=== PATIENT | male | born 1990 | race Caucasian/White ===

== ENCOUNTER 2020-08-17 10:51 | Emergency (ER) | payer OTHER, SELFPAY ==
[2020-08-17 11:20] VITALS: BP 130/87; PULSE 72; RESP 16; TEMP 37; O2SAT 97; BMI 27.4
--- NOTE | 2020-08-17 11:34 | HMH.EDUTC ---
[facility] – [place] Disposition Clinical Impression: URI (upper respiratory infection) Qualifiers: URI type: unspecified URI Qualified Code(s): J06.9 - Acute upper respiratory infection, unspecified Disposition: Home, Self-Care Condition on Discharge: Good Instructions: Sore Throat, DI for Sinusitis Additional Instructions: *Monitor Temp, Over the counter Motrin or Tylenol as directed/as needed Tylenol every 4 hours and Motrin every 6 hours (as long as your family doctor has told you that you can take it) for fever or pain. and straight to ER if unable to lower temp less than 101.0 after medication given *Warm salt water gargles may help to soothe the throat *Throat Lozenges *Warm fluids like tea with honey may help to soothe the throat *Sleep elevated *Humidifier/Vaporizer *Flonase 2 sprays in each nostril daily but be aware that it may take 2-3 days before you notice improvement Follow up IMMEDIATELY for new or worsening symptoms or no Noticeable improvement over the next 48-72 hours. 911 for difficulty breathing or swallowing Referrals: Britton High MD [Primary Care Provider] - As needed Forms: Work/School Release Time of Disposition: 11:47 Medical Decision Making - Sergio Inquiry Pt receiving controlled substance: No Sergio was queried for this patient: No Vital Signs: 08/17/20 11:20 Temperature 98.6 F Temperature Source Oral Pulse Rate [Right Brachial] 72 Respiratory Rate 16 Blood Pressure [Right Arm] 130/87 Blood Pressure Mean [Right Arm] 101 Blood Pressure Source [Right Arm] Automatic Cuff Blood Pressure Position [Right Arm] Sitting 02 Sat by Pulse Oximetry 97 Oxygen Delivery Method Room Air Orders (Tests/Meds): ED MEDICATIONS Discontinued Medications Generic Name Dose Route Start Last Admin Trade Name Freq PRN Reason Stop Dose Admin Ceftriaxone Sodium 1 gm 08/17/20 11:35 08/17/20 11:55 Ceftriaxone 1gm Vial IM 08/17/20 11:36 1 gm ONCE ONE Administration Protocol Lidocaine HCl 0 ml 08/17/20 11:35 08/17/20 11:55 Lidocaine 1% 5ml Pf Vial IM 08/17/20 11:36 2.1 ml ONCE ONE Administration Methylprednisolone Sodium Succinate 125 mg 08/17/20 11:35 08/17/20 11:55 Methylprednisolone Sod Succ 125mg Vial IM 08/17/20 11:36 125 mg ONCE ONE Administration [facility] [place] HPI - General Stated complaint: congestion Time Seen by Provider: 08/17/20 11:34 Mode of Arrival: Ambulatory Source of Information: Patient Limitations: No Limitations Description of Symptoms (Recalled from Triage Doc. by RN): PATIENT C/O SINUS PRESSURE AND COUGH X 1 WEEK HEENT Symptoms (Recalled from RN notes): Yes Resp Symptoms (Recalled from RN notes): Yes Skin Symptoms (Recalled from RN notes): No MS Symptoms (Recalled from RN notes): No Functional Status (Recalled from RN notes): WNL - History of Present Illness Provider Complaint: Patient states that he has been having sinus congestion, drainage and some irritation in the back of his throat States that he has had this several times before and come in and got a shot that helped States that today he was still having symtpoms so he come in - Related Data Allergies Allergy/AdvReac Type Severity Reaction Status Date / Time Sulfa (Sulfonamide Allergy Intermediate I-RASH Verified 09/04/18 18:29 Antibiotics) [SULFA (SULFONAMIDE ANTIBIOTICS)] - Worker's Comp Is this a Worker's Comp case?: No [facility] History - Hepatitis A Screen Drug use history?: No High risk sexual behaviors?: No History of sexually transmitted infection?: No Currently employed?: No Childcare worker?: No Do you have indoor plumbing?: Yes Do you have electricity?: Yes Attestation statement:: This patient has been screened for Hepatitis A risk factors. I have reviewed the patient's past medical history: Yes Medical History: Denies:: Cancer, Diabetes Mellitus Type 1, Diabetes Mellitus Type 2, MRSA Amputation: No Fractures: No - Social History Smoking S
[2020-08-17 12:09] VITALS: BP 130/87; PULSE 72; RESP 16; TEMP 37; O2SAT 97
== END 2020-08-17 12:11 | disposition home or self-care (01) ==
PROVIDERS: Emergency Provider Nurse Practitioner; PCP Internal Medicine Adolescent Medicine
DX: J06.9 Acute upper respiratory infection, unspecified (principal); Z88.2 Allergy status to sulfonamides
CPT/HCPCS: 96372; 99201

== ENCOUNTER 2020-09-16 15:59 | Emergency (ER) | payer OTHER, SELFPAY ==
[2020-09-16 16:05] VITALS: BP 154/99; PULSE 121; RESP 16; TEMP 37.9; O2SAT 99; BMI 25.8
--- NOTE | 2020-09-16 16:32 | HMH.EDUTC ---
[facility] [place]ression: Bronchitis, Viral syndrome Disposition: Home, Self-Care Condition on Discharge: Good Instructions: DI for Acute Bronchitis, Preventing the Spread of Coronavirus Discharge Instructions Additional Instructions: Drink plenty of fluids. Take tylenol for pain or fever. Return if you begin to have difficulty breathing. Follow up with your regular doctor. GO TO THE ER FOR ANY WORSENING SYMPTOMS Prescriptions: Brompheniramine/Pseudoephed/Dm [Bromfed Dm Cough Syrup] 5 ml PO Q6HP PRN #240 syrup PRN Reason: Cough Transmission Status: Re[facility] by [facility] Azithromycin [Z-Hao 250mg Tab*] 250 mg PO UD DOSE PK #6 tab Transmission Status: Received by [facility] Referrals: Britton High MD [Primary Care Provider] - Time of Disposition: 16:34 Medical Decision Making - Medical Records Medical records reviewed: No: I reviewed the patient's medical records. - Sergio Inquiry Pt receiving controlled substance: No Vital Signs: 09/16/20 16:05 09/16/20 16:37 Temperature 100.2 F H 100.2 F H Temperature Source Oral Pulse Rate 121 H Pulse Rate [Left Brachial] 121 H Respiratory Rate 16 16 Blood Pressure 154/99 H Blood Pressure [Left Arm] 154/99 H Blood Pressure Mean [Left Arm] 117 Blood Pressure Source [Left Arm] Automatic Cuff Blood Pressure Position [Left Arm] Sitting 02 Sat by Pulse Oximetry 99 Oxygen Delivery Method Room Air - Lab Data Lab Results 09/16/20 16:26: Influenza Type A Ag Negative, Influenza Type B Ag Negative [facility] [place] - General Stated complaint: congestion cough Time Seen by Provider: 09/16/20 16:32 Mode of Arrival: Ambulatory Source of Information: Patient Limitations: No Limitations Description of Symptoms (Recalled from Triage Doc. by RN): PATIENT C/O COUGH THAT STARTED YESTERDAY HEENT Symptoms (Recalled from RN notes): No Resp Symptoms (Recalled from RN notes): Yes Skin Symptoms (Recalled from RN notes): No MS Symptoms (Recalled from RN notes): No Functional Status (Recalled from RN notes): WNL - History of Present Illness Provider Complaint: He states that for the past 1 day he has developed a cough and chest congestion. He denies any possible covid exposure and he adamantly refuses a covid test today. - Related Data Previous Rx's Medication Instructions Recorded Azithromycin [Z-Hao 250mg Tab*] 250 mg PO UD DOSE PK #6 tab 09/16/20 Brompheniramine/Pseudoephed/Dm 5 ml PO Q6HP PRN #240 syrup 09/16/20 [Bromfed Dm Cough Syrup] Allergies Allergy/AdvReac Type Severity Reaction Status Date / Time Sulfa (Sulfonamide Allergy Intermediate I-RASH Verified 09/04/18 18:29 Antibiotics) [SULFA (SULFONAMIDE ANTIBIOTICS)] - Worker's Comp Is this a Worker's Comp case?: No H History - Hepatitis A Screen Drug use history?: No High risk sexual behaviors?: No History of sexually transmitted infection?: No Currently employed?: No Childcare worker?: No Do you have indoor plumbing?: Yes Do you have electricity?: Yes Attestation statement:: This patient has been screened for Hepatitis A risk factors. I have reviewed the patient's past medical history: Yes Medical History: Denies:: Cancer, Diabetes Mellitus Type 1, Diabetes Mellitus Type 2, MRSA Amputation: No Fractures: No - Social History Smoking Status: Never smoker Alcohol Intake: never Alcohol Intake Frequency:: holidays/special occasions only Occupational Status: other Housing: house ROS Obtained: Yes All systems reviewed & no additional complaints - Constitutional Constitutional: Reports system reviewed and no additional complaints, except as docu - Eyes Eyes: Reports system reviewed and no additional complaints, except as docu - ENT Ears, Nose, Mouth, and Throat: Reports system reviewed and no additional complaints, except as docu - Cardiovascular Cardiovascular: Reports system reviewed and no additional co
[2020-09-16 16:37] VITALS: BP 154/99; PULSE 121; RESP 16; TEMP 37.9; O2SAT 99
[2020-09-16 16:49] LABS: UTC Influenza A Antigen Negative (Negative); UTC Influenza B Antigen Negative (Negative)
== END 2020-09-16 16:40 | disposition home or self-care (01) ==
PROVIDERS: Emergency Provider Nurse Practitioner Family; PCP Internal Medicine Adolescent Medicine
DX: J20.9 Acute bronchitis, unspecified (principal); B34.9 Viral infection, unspecified
CPT/HCPCS: 87804; 99201

== ENCOUNTER 2020-09-21 13:47 | Emergency (ER) | payer OTHER, SELFPAY ==
--- NOTE | 2020-09-21 14:18 | HMH.EDUTC ---
[facility] [place] Disposition Clinical Impression: Cough, Viral syndrome Disposition: Home, Self-Care Condition on Discharge: Good Instructions: Cough Additional Instructions: Drink plenty of fluids. Take tylenol for pain or fever. Return if you begin to have difficulty breathing. Follow up with your regular doctor. GO TO THE ER FOR ANY WORSENING SYMPTOMS Prescriptions: Promethazine/Dextromethorphan [Promethazine-Dm Syrup] 5 ml PO Q6HP PRN #240 syrup PRN Reason: Cough Transmission Status: Received by [id number] Referrals: Britton High MD [Primary Care Provider] - Time of Disposition: 14:39 Medical Decision Making - Medical Records Medical records reviewed: No: I reviewed the patient's medical records. - Sergio Inquiry Pt receiving controlled substance: No Vital Signs: 09/21/20 14:22 09/21/20 14:42 Temperature 99.4 F 99.4 F Temperature Source Oral Pulse Rate 74 Pulse Rate [Left] 74 Respiratory Rate 19 19 Blood Pressure 128/84 Blood Pressure [Right Arm] 128/84 Blood Pressure Mean [Right Arm] 98 Blood Pressure Source [Right Arm] Automatic Cuff Blood Pressure Position [Right Arm] Sitting 02 Sat by Pulse Oximetry 98 Oxygen Delivery Method Room Air Medical Decision Narrative: He adamantly refused a covid test. [facility] [place] HPI - General Stated complaint: cough Time Seen by Provider: 09/21/20 14:18 - History of Present Illness Provider Complaint: He is back here with a complaint of continuing to have a cough. He refuses a covid test. He completed a z-pack. He has also been taking bromfed for his cough, but its not working very well. - Related Data Previous Rx's Medication Instructions Recorded Promethazine/Dextromethorphan 5 ml PO Q6HP PRN #240 syrup 09/21/20 [Promethazine-Dm Syrup] Allergies Allergy/AdvReac Type Severity Reaction Status Date / Time Sulfa (Sulfonamide Allergy Intermediate I-RASH Verified 09/21/20 14:40 Antibiotics) [SULFA (SULFONAMIDE ANTIBIOTICS)] [facility] History - Hepatitis A Screen Attestation statement:: This patient has been screened for Hepatitis A risk factors. I have reviewed the patient's past medical history: Yes Medical History: Denies:: Cancer, Diabetes Mellitus Type 1, Diabetes Mellitus Type 2, MRSA Amputation: No Fractures: No - Social History Smoking Status: Never smoker Alcohol Intake: never Alcohol Intake Frequency:: holidays/special occasions only Occupational Status: other Housing: house ROS Obtained: Yes All systems reviewed & no additional complaints - Constitutional Constitutional: Reports system reviewed and no additional complaints, except as docu - Eyes Eyes: Reports system reviewed and no additional complaints, except as docu - ENT Ears, Nose, Mouth, and Throat: Reports system reviewed and no additional complaints, except as docu - Cardiovascular Cardiovascular: Reports system reviewed and no additional complaints, except as docu - Respiratory Respiratory: Yes system reviewed and no additional complaints, except as docu - Gastrointestinal Gastrointestingal: Reports: system reviewed and no additional complaints, except as docu Physical Exam - General General appearance: alert, in no apparent distress - Head Head exam: atraumatic, normocephalic, normal inspection - Eye Eye exam: Present: normal appearance, PERRL, EOMI - ENT ENT exam: Present: normal exam, normal oropharynx, mucous membranes moist, TM's normal bilaterally, normal external ear exam - Neck Neck exam: Present: normal inspection, full ROM, trachea midline. Absent: meningismus, lymphadenopathy - Chest Chest inspection: Present: normal inspection, symmetric chest wall rise. Absent: tenderness - Respiratory Respiratory exam: Present: normal lung sounds bilaterally. Absent: respiratory distress - Cardiovascular Cardiovascular exam: Present: regular rate, normal rhythm. Absent: JVD - Abdomin
[2020-09-21 14:22] VITALS: BP 128/84; PULSE 74; RESP 19; TEMP 37.4; O2SAT 98; BMI 27.4
[2020-09-21 14:42] VITALS: BP 128/84; PULSE 74; RESP 19; TEMP 37.4; O2SAT 98
== END 2020-09-21 14:42 | disposition home or self-care (01) ==
PROVIDERS: Emergency Provider Nurse Practitioner Family; PCP Internal Medicine Adolescent Medicine
DX: B34.9 Viral infection, unspecified (principal)
CPT/HCPCS: 99201

== ENCOUNTER → 2020-09-24 16:01 | Outpatient (CLI) | payer OTHER, SELFPAY ==
--- NOTE | 2020-09-24 16:10 | XR_ITS ---
PROCEDURE: XR CHEST PORTABLE CLINICAL HISTORY: COVID OUPATIENT COMPARISON: No exams were available for comparison FINDINGS: The cardiomediastinal silhouette and pulmonary vascularity are within normal limits. The lungs are clear without infiltrates, suspicious nodules, or pleural effusions. There is a possible partially calcified granuloma left lower lobe. No acute bony abnormalities. IMPRESSION: No acute findings. Dictated by: Dr. Justyn Cortez MD 09/25/2020 09:40 Dr. Justyn Cortez MD in [place] 09/25/2020 09:40
[2020-09-24 16:23] LABS: Adenovirus,PCR Not Detected (NotDetected); Bordetella Pertussis Not Detected (NotDetected); Chlamydophila Pneumoniae, PCR Not Detected (NotDetected); Coronavirus 229E Not Detected (NotDetected); Coronavirus NL63 Not Detected (NotDetected); Coronavirus OC43 Not Detected (NotDetected); Coronovirus HKU1,PCR Not Detected (NotDetected); Human Metapneumovirus Not Detected (NotDetected); Influenza A, PCR Not Detected (NotDetected); Influenza AH1, 2009 Not Detected (NotDetected); Influenza AH1, PCR Not Detected (NotDetected); Influenza AH3,PCR Not Detected (NotDetected); Influenza B, PCR Not Detected (NotDetected); Mycoplasma Pneumoniae, PCR Not Detected (NotDetected); Parainfluenza 1, PCR Not Detected (NotDetected); Parainfluenza 2, PCR Not Detected (NotDetected); Parainfluenza 3, PCR Not Detected (NotDetected); Parainfluenza 4, PCR Not Detected (NotDetected); Respiratory Syncytial Virus Not Detected (NotDetected); Rhinovirus/Enterovirus Not Detected (NotDetected)
[2020-09-25 09:25] LABS: Coronavirus 19, PCR Detected (NotDetected)
== END ==
PROVIDERS: PCP Internal Medicine Adolescent Medicine; Visit Provider Internal Medicine Adolescent Medicine
DX: Z20.828 Contact with and (suspected) exposure to other viral communicable diseases (principal); U07.1 COVID-19
CPT/HCPCS: 71045; 87581; 87633; 87798

== ENCOUNTER 2021-05-22 12:55 | Emergency (ER) | payer OTHER, SELFPAY ==
[2021-05-22 15:04] VITALS: BP 128/83; PULSE 97; RESP 16; TEMP 37.1; O2SAT 100; BMI 29.0
--- NOTE | 2021-05-22 15:23 | HMH.EDUTC ---
[facility] [place] Clinical Impression: Sinusitis Qualifiers: Sinusitis location: unspecified location Chronicity: acute Recurrence: non-recurrent Qualified Code(s): J01.90 - Acute sinusitis, unspecified Disposition: Home, Self-Care Condition on Discharge: Good Instructions: DI for Sinusitis Additional Instructions: Drink plenty of fluids. Take tylenol or ibuprofen for pain or fever. Take the medications as directed. Follow up with your regular doctor. GO TO THE ER FOR ANY WORSENING SYMPTOMS Quarantine until you know the results of your covid-19 test. If it is positive, the health department should call you and give you further instructions about your length of Quarantine and other things. Notify your school or workplace of your results and follow their instructions regarding return to work/school. Prescriptions: methylPREDNISolone [Medrol] 4 mg PO DIRECTED 6 Days #21 tab.ds.pk Transmission Status: Received by [facility] #[id number] Benzonatate [Tessalon Perle 100mg Cap] 100 mg PO TIDP PRN #30 cap PRN Reason: Cough Transmission Status: Received by [facility] # Azithromycin [Z-Hao 250mg Tab*] 250 mg PO UD DOSE PK #6 tab Transmission Status: Received by [facility] #[id number] Referrals: Britton High MD [Primary Care Provider] - Time of Disposition: 15:28 Medical Decision Making - Medical Records Medical records reviewed: No: I reviewed the patient's medical records. - Sergio Inquiry Pt receiving controlled substance: No Vital Signs: 05/22/21 15:04 05/22/21 15:38 Temperature 98.8 F 98.8 F Temperature Source Oral Pulse Rate 97 H Pulse Rate [Left] 97 H Respiratory Rate 16 18 Blood Pressure 128/83 Blood Pressure [Right Arm] 128/83 Blood Pressure Mean [Right Arm] 98 02 Sat by Pulse Oximetry 100 [facility] [place] - General Stated complaint: sinus pressure Time Seen by Provider: 05/22/21 15:23 Mode of Arrival: Ambulatory Source of Information: Patient Limitations: No Limitations Description of Symptoms (Recalled from Triage Doc. by RN): PT C/O SINUS PRESSURE AND MOCK. STATES HE HAS RECURRENT SINUS INFECTIONS. HEENT Symptoms (Recalled from RN notes): Yes (SINUS PRESSURE AND MOCK) Resp Symptoms (Recalled from RN notes): No Skin Symptoms (Recalled from RN notes): No MS Symptoms (Recalled from RN notes): No Functional Status (Recalled from RN notes): NA - History of Present Illness Provider Complaint: He states that he feels like he is getting a sinus infection. He denies any fever or chills. He had covid-19 back in November and he states that this does not feel like covid-19. - Related Data Previous Rx's Medication Instructions Recorded Promethazine/Dextromethorphan 5 ml PO Q6HP PRN #240 syrup 09/21/20 [Promethazine-Dm Syrup] Azithromycin [Z-Hao 250mg Tab*] 250 mg PO UD DOSE PK #6 tab 05/22/21 Benzonatate [Tessalon Perle 100mg 100 mg PO TIDP PRN #30 cap 05/22/21 Cap] methylPREDNISolone [Medrol] 4 mg PO DIRECTED 6 Days #21 05/22/21 tab.ds.pk Allergies Allergy/AdvReac Type Severity Reaction Status Date / Time Sulfa (Sulfonamide Allergy Intermediate I-RASH Verified 09/21/20 14:40 Antibiotics) [SULFA (SULFONAMIDE ANTIBIOTICS)] - Worker's Comp Is this a Worker's Comp case?: No [facility] History - Hepatitis A Screen Drug use history?: No High risk sexual behaviors?: No History of sexually transmitted infection?: No Currently employed?: No Childcare worker?: No Do you have indoor plumbing?: Yes Do you have electricity?: Yes Attestation statement:: This patient has been screened for Hepatitis A risk factors. I have reviewed the patient's past medical history: Yes Medical History: Denies:: Cancer, Diabetes Mellitus Type 1, Diabetes Mellitus Type 2, MRSA Amputation: No Fractures: No - Social History Smoking Status: Never smoker Alcohol Intake: never Alcohol Intake Frequency:: holidays/special occasions only Occ
[2021-05-22 15:38] VITALS: BP 128/83; PULSE 97; RESP 18; TEMP 37.1
== END 2021-05-22 15:56 | disposition home or self-care (01) ==
PROVIDERS: Emergency Provider Nurse Practitioner Family; PCP Internal Medicine Adolescent Medicine
DX: J01.90 Acute sinusitis, unspecified (principal)
CPT/HCPCS: 99202; G0463

== ENCOUNTER 2021-08-29 13:57 | Emergency (ER) | payer OTHER, SELFPAY ==
[2021-08-29 15:37] VITALS: BP 139/83; PULSE 107; RESP 14; TEMP 37; O2SAT 97; BMI 29.8
[2021-08-29 16:06] LABS: UTC Strep Screen (Rapid) Positive (Negative)
--- NOTE | 2021-08-29 16:14 | HMH.EDUTC ---
[facility] [place] Disposition Clinical Impression: Strep throat Disposition: Home, Self-Care Condition on Discharge: Good Instructions: DI for Strep Throat, Strep Throat Additional Instructions: Drink plenty of fluids. Take tylenol or ibuprofen for pain or fever. Take the medications as directed. Follow up with your regular doctor. GO TO THE ER FOR ANY WORSENING SYMPTOMS Throw your tooth brush away and get a new one. Prescriptions: predniSONE [Deltasone 10mg tablet] 10 mg PO BID 3 Days #6 tab Transmission Status: Pending to [facility] # Azithromycin [Z-Hao 250mg Tab*] 250 mg PO UD DOSE PK #6 tab Transmission Status: Pending to [facility] # Referrals: Britton High MD [Primary Care Provider] - Time of Disposition: 16:50 Medical Decision Making - Medical Records Medical records reviewed: No: I reviewed the patient's medical records. - Sergio Inquiry Pt receiving controlled substance: No Vital Signs: 08/29/21 15:37 Temperature 98.6 F Temperature Source Oral Pulse Rate [Left] 107 H Respiratory Rate 14 Blood Pressure [Right Arm] 139/83 Blood Pressure Mean [Right Arm] 101 02 Sat by Pulse Oximetry 97 - Lab Data Lab results reviewed: Yes: I reviewed the patient's lab results. Lab Results 08/29/21 16:05: Strep Scn Rapid Clinic Positive A Orders (Tests/Meds): ED MEDICATIONS Discontinued Medications Generic Name Dose Route Start Last Admin Trade Name Katlin PRN Reason Stop Dose Admin Methylprednisolone Sodium Succinate 125 mg 08/29/21 16:18 08/29/21 16:35 Methylprednisolone Sod Succ 125mg Vial IM 08/29/21 16:19 125 mg ONCE ONE Administration Penicillin G Benzathine 1,200,000 unit 08/29/21 16:18 08/29/21 16:35 Penicillin G Benzathine 1,200,000 Units/2ml Syringe IM 08/29/21 16:19 1,200,000 unit ONCE ONE Administration [facility] [place] HPI - General Stated complaint: sore throat, cough, congestion Time Seen by Provider: 08/29/21 16:14 Mode of Arrival: Ambulatory Source of Information: Patient Limitations: No Limitations Description of Symptoms (Recalled from Triage Doc. by RN): pt c/o sinus pressure/congestion and a sore throat. started yesterday. HEENT Symptoms (Recalled from RN notes): Yes (congestion/drainage and sore throat) Resp Symptoms (Recalled from RN notes): No Skin Symptoms (Recalled from RN notes): No MS Symptoms (Recalled from RN notes): No Functional Status (Recalled from RN notes): wnl - History of Present Illness Provider Complaint: He c/o sore throat and feeling bad since last night. He denies chest congestion or shortness of breath. - Related Data Previous Rx's Medication Instructions Recorded Promethazine/Dextromethorphan 5 ml PO Q6HP PRN #240 syrup 09/21/20 [Promethazine-Dm Syrup] Azithromycin [Z-Hao 250mg Tab*] 250 mg PO UD DOSE PK #6 tab 05/22/21 Benzonatate [Tessalon Perle 100mg 100 mg PO TIDP PRN #30 cap 05/22/21 Cap] methylPREDNISolone [Medrol] 4 mg PO DIRECTED 6 Days #21 05/22/21 tab.ds.pk Azithromycin [Z-Hao 250mg Tab*] 250 mg PO UD DOSE PK #6 tab 08/29/21 predniSONE [Deltasone 10mg tablet] 10 mg PO BID 3 Days #6 tab 08/29/21 Allergies Allergy/AdvReac Type Severity Reaction Status Date / Time Sulfa (Sulfonamide Allergy Intermediate I-RASH Verified 09/21/20 14:40 Antibiotics) [SULFA (SULFONAMIDE ANTIBIOTICS)] - Worker's Comp Is this a Worker's Comp case?: No H History - Hepatitis A Screen Drug use history?: No High risk sexual behaviors?: No History of sexually transmitted infection?: No Currently employed?: No Childcare worker?: No Do you have indoor plumbing?: Yes Do you have electricity?: Yes Attestation statement:: This patient has been screened for Hepatitis A risk factors. I have reviewed the patient's past medical history: Yes Medical History: Denies:: Cancer, Diabetes Mellitus Type 1, Diabetes Mellitus Type 2, MRSA Amputation: No Fracture
[2021-08-29 16:49] VITALS: BP 139/83; PULSE 107; RESP 14; TEMP 37
== END 2021-08-29 16:53 | disposition home or self-care (01) ==
PROVIDERS: Emergency Provider Nurse Practitioner Family; PCP Internal Medicine Adolescent Medicine
DX: J02.0 Streptococcal pharyngitis (principal)
CPT/HCPCS: 87880; 96372; 99202; G0463; J0561

== ENCOUNTER 2021-09-24 09:03 | Emergency (ER) | payer OTHER, SELFPAY ==
[2021-09-24 09:05] VITALS: BP 110/84; PULSE 105; RESP 20; TEMP 37.2; O2SAT 96; BMI 29.0
[2021-09-24 09:29] LABS: UTC Influenza A Antigen Negative (Negative); UTC Strep Screen (Rapid) Negative (Negative)
[2021-09-24 09:30] LABS: UTC Influenza B Antigen Negative (Negative)
--- NOTE | 2021-09-24 09:45 | HMH.EDUTC ---
[facility] [place] Impression: Sinusitis Qualifiers: Sinusitis location: unspecified location Chronicity: acute Recurrence: non-recurrent Qualified Code(s): J01.90 - Acute sinusitis, unspecified Otitis media Qualifiers: Otitis media type: suppurative Chronicity: acute Laterality: bilateral Recurrence: non-recurrent Spontaneous tympanic membrane rupture: without spontaneous rupture Qualified Code(s): H66.003 - Acute suppurative otitis media without spontaneous rupture of ear drum, bilateral Disposition: Home, Self-Care Condition on Discharge: Good Instructions: Sinusitis, Middle Ear Infection, DI for Sinusitis Additional Instructions: Drink plenty of fluids. Take tylenol or ibuprofen for pain or fever. Take the medications as directed. Follow up with your regular doctor. GO TO THE ER FOR ANY WORSENING SYMPTOMS Don't start the oral steroids until tomorrow, since you had the shot here today. The cough medication (promethazine dm) will make you drowsy, so don't drive or operate heavy machinery after taking it. Prescriptions: Promethazine/Dextromethorphan [Promethazine-Dm Syrup] 5 ml PO Q6HP PRN #240 ml PRN Reason: Cough Transmission Status: Received by [facility] #[id number] methylPREDNISolone [Medrol] 4 mg PO DIRECTED 6 Days #21 packet Transmission Status: Received by [facility] # [email or web address] [Mucinex 600mg tablet] 1 - 2 tab PO BIDP PRN #30 tab PRN Reason: Congestion Transmission Status: Received by [facility] #[id number] Azithromycin [Z-Hao 250mg Tab*] 250 mg PO UD DOSE PK #6 tab Transmission Status: Received by [facility] #[id number] Referrals: Britton High MD [Primary Care Provider] - Time of Disposition: 09:58 Medical Decision Making - Medical Records Medical records reviewed: No: I reviewed the patient's medical records. - Sergio Inquiry Pt receiving controlled substance: No Vital Signs: 09/24/21 09:05 09/24/21 09:54 Temperature 98.9 F 98.9 F Temperature Source Oral Pulse Rate 105 H Pulse Rate [Right Brachial] 105 H Respiratory Rate 20 20 Blood Pressure 110/84 Blood Pressure [Right Arm] 110/84 Blood Pressure Mean [Right Arm] 92 Blood Pressure Source [Right Arm] Automatic Cuff Blood Pressure Position [Right Arm] Sitting 02 Sat by Pulse Oximetry 96 Oxygen Delivery Method Room Air - Lab Data Lab results reviewed: Yes: I reviewed the patient's lab results. Lab Results 09/24/21 09:28: Influenza Type A Ag Negative, Influenza Type B Ag Negative 09/24/21 09:28: Strep Scn Rapid Clinic Negative Orders (Tests/Meds): ED MEDICATIONS Discontinued Medications Generic Name Dose Route Start Last Admin Trade Name Katlin PRN Reason Stop Dose Admin Ceftriaxone Sodium 1 gm 09/24/21 09:44 09/24/21 09:52 Ceftriaxone 1gm Vial IM 09/24/21 09:45 1 gm ONCE ONE Administration Lidocaine HCl 0 ml 09/24/21 09:44 09/24/21 09:52 Lidocaine 1% 5ml Pf Vial IM 09/24/21 09:45 2 ml ONCE ONE Administration Methylprednisolone Sodium Succinate 125 mg 09/24/21 09:44 09/24/21 09:52 Methylprednisolone Sod Succ 125mg Vial IM 09/24/21 09:45 125 mg ONCE ONE Administration ORDERS Category Date Time Status Strep Screen Confirmation Stat Micro 09/24/21 09:28 Received Medical Decision Narrative: He refused a covid-19 test. [facility] [place] General Stated complaint: sore throat, cough, h/a, congestion Time Seen by Provider: 09/24/21 09:20 Mode of Arrival: Ambulatory Source of Information: Patient Limitations: No Limitations Description of Symptoms (Recalled from Triage Doc. by RN): PATIENT C/O CONGESTION AND COUG X 2 DAYS HEENT Symptoms (Recalled from RN notes): Yes Resp Symptoms (Recalled from RN notes): Yes Skin Symptoms (Recalled from RN notes): No MS Symptoms (Recalled from RN notes): No Functional Status (Recalled from RN notes): WNL - History of Present Illness Provider Complaint: He stat
[2021-09-24 09:54] VITALS: BP 110/84; PULSE 105; RESP 20; TEMP 37.2; O2SAT 96
== END 2021-09-24 10:05 | disposition home or self-care (01) ==
PROVIDERS: Emergency Provider Nurse Practitioner Family; PCP Internal Medicine Adolescent Medicine
DX: J01.90 Acute sinusitis, unspecified (principal); H66.003 Acute suppurative otitis media without spontaneous rupture of ear drum, bilateral
CPT/HCPCS: 87804; 87880; 96372; 99202; G0463

== ENCOUNTER 2021-09-27 13:01 | Emergency (ER) | payer OTHER, SELFPAY ==
[2021-09-27 14:55] VITALS: BP 144/89; PULSE 87; RESP 19; TEMP 36.8; O2SAT 98; BMI 28.8
--- NOTE | 2021-09-27 15:35 | HMH.EDUTC ---
[facility] Disposition Clinical Impression: Bronchitis Sinusitis Qualifiers: Sinusitis location: unspecified location Chronicity: unspecified Qualified Code(s): J32.9 - Chronic sinusitis, unspecified Disposition: Home, Self-Care Condition on Discharge: Good Instructions: Sinusitis, DI for Sinusitis Additional Instructions: *Monitor Temp, Over the counter Motrin or Tylenol as directed/as needed Tylenol every 4 hours and Motrin every 6 hours (as long as your family doctor has told you that you can take it) for fever or pain. and straight to ER if unable to lower temp less than 101.0 after medication given *Warm salt water gargles may help to soothe the throat *Throat Lozenges *Warm fluids like tea with honey may help to soothe the throat *Sleep elevated *Humidifier/Vaporizer Follow up IMMEDIATELY for new or worsening symptoms or no Noticeable improvement over the next 48-72 hours. 911 for difficulty breathing or swallowing You were tested for today for COVID19 your test result should be back in the next 24-48 hours, you may Check your results on the [facility] if you have trouble logging on you may call You was given a handout with instructions for Self Quarantine and Self isolation for while you wait on test results and what to do if they are positive If you are positive the Health Dept will be contacting you also Make sure to take your Vitamins Vit. C Vit D and Zinc if you can take them Prescriptions: Amoxicillin/Potassium Clav [Augmentin 875-125 Tablet] 1 tab PO Q12H 7 Days #14 tab Transmission Status: Received by [id number] Referrals: Britton High MD [Primary Care Provider] - As needed Time of Disposition: 17:06 Medical Decision Making - Sergio Inquiry Pt receiving controlled substance: No Sergio was queried for this patient: No Vital Signs: 09/27/21 14:55 09/27/21 16:28 Temperature 98.2 F 98.2 F Temperature Source Oral Pulse Rate 87 Pulse Rate [Right Brachial] 87 Respiratory Rate 19 19 Blood Pressure 144/89 H Blood Pressure [Right Arm] 144/89 H Blood Pressure Mean [Right Arm] 107 Blood Pressure Source [Right Arm] Automatic Cuff Blood Pressure Position [Right Arm] Sitting 02 Sat by Pulse Oximetry 98 Oxygen Delivery Method Room Air Orders (Tests/Meds): ORDERS Category Date Time Status Full Resp Panel w/COVID ([facility]) Routine Lab 09/27/21 16:15 Received [facility] HPI - General Stated complaint: cough, runny nose, congestion Time Seen by Provider: 09/27/21 15:35 Mode of Arrival: Ambulatory Source of Information: Patient Limitations: No Limitations Description of Symptoms (Recalled from Triage Doc. by RN): PATIENT C/O COUGH AND SINUS PRESSURE X 4 DAYS HEENT Symptoms (Recalled from RN notes): Yes Resp Symptoms (Recalled from RN notes): Yes Skin Symptoms (Recalled from RN notes): No MS Symptoms (Recalled from RN notes): No Functional Status (Recalled from RN notes): WNL - History of Present Illness Provider Complaint: Patient states that he has been having cough and sinus pressure State that he was seen a few days ago and was dx with sinusitis States that he has taken the medication and only has one day left and still not feeling any better States that he is still having chest congestion, sinus pressure and cough so he came back in to get checked again - Related Data Previous Rx's Medication Instructions Recorded Azithromycin [Z-Hao 250mg Tab*] 250 mg PO UD DOSE PK #6 tab 09/24/21 Promethazine/Dextromethorphan 5 ml PO Q6HP PRN #240 ml 09/24/21 [Promethazine-Dm Syrup] guaiFENesin [Mucinex 600mg tablet] 1 - 2 tab PO BIDP PRN #30 tab 09/24/21 methylPREDNISolone [Medrol] 4 mg PO DIRECTED 6 Days #21 09/24/21 packet Amoxicillin/Potassium Clav 1 tab PO Q12H 7 Days #14 tab 09/27/21 [Augmentin 875-125 Tablet] Allergies Allergy/AdvReac Type Severity Reaction Status Date / Time Sulfa (Sulfonamide Allergy Intermediate I-RASH Verified 09/21/20 14:40 Anti
[2021-09-27 16:28] VITALS: BP 144/89; PULSE 87; RESP 19; TEMP 36.8; O2SAT 98
[2021-09-27 16:34] LABS: Adenovirus,PCR Not Detected (NotDetected); Bordetella Pertussis Not Detected (NotDetected); Chlamydophila Pneumoniae, PCR Not Detected (NotDetected); Coronavirus 19, PCR Not Detected (NotDetected); Coronavirus 229E Not Detected (NotDetected); Coronavirus NL63 Not Detected (NotDetected); Coronavirus OC43 Not Detected (NotDetected); Coronovirus HKU1,PCR Not Detected (NotDetected); Influenza A, PCR Not Detected (NotDetected); Influenza AH1, 2009 Not Detected (NotDetected); Influenza AH1, PCR Not Detected (NotDetected); Influenza AH3,PCR Not Detected (NotDetected); Influenza B, PCR Not Detected (NotDetected); Mycoplasma Pneumoniae, PCR Not Detected (NotDetected); Parainfluenza 1, PCR Not Detected (NotDetected); Parainfluenza 2, PCR Not Detected (NotDetected); Parainfluenza 3, PCR Not Detected (NotDetected); Parainfluenza 4, PCR Not Detected (NotDetected); Respiratory Syncytial Virus Not Detected (NotDetected); Rhinovirus/Enterovirus Not Detected (NotDetected)
[2021-09-28 00:24] LABS: Human Metapneumovirus Detected (NotDetected)
== END 2021-09-27 17:27 | disposition home or self-care (01) ==
PROVIDERS: Emergency Provider Nurse Practitioner; PCP Internal Medicine Adolescent Medicine
DX: J20.9 Acute bronchitis, unspecified (principal); B34.8 Other viral infections of unspecified site; J32.9 Chronic sinusitis, unspecified
CPT/HCPCS: 87581; 87632; 87798; 99202; C9803; G0463; U0003; U0005

== ENCOUNTER 2022-03-30 09:03 | Emergency (ER) | payer OTHER, SELFPAY ==
--- NOTE | 2022-03-30 09:23 | HMH.EDUTC ---
[facility] [place] Disposition Clinical Impression: Viral syndrome Pharyngitis Qualifiers: Pharyngitis/tonsillitis etiology: unspecified etiology Qualified Code(s): J02.9 - Acute pharyngitis, unspecified Disposition: Home, Self-Care Condition on Discharge: Good Instructions: DI for COVID-19 (Suspected or Confirmed ), Preventing the Spread of Coronavirus Discharge Instructions Additional Instructions: Drink plenty of fluids. Take tylenol or ibuprofen for pain or fever. Take the medications as directed. Follow up with your regular doctor. GO TO THE ER FOR ANY WORSENING SYMPTOMS Quarantine until you know the results of your covid-19 test. Notify your school or workplace of your results and follow their instructions regarding return to work/school. Prescriptions: Benzonatate [Benzonatate 100mg cap] 100 mg PO TIDP PRN #30 cap PRN Reason: Cough Transmission Status: Received by [facility] methylPREDNISolone [Medrol] 4 mg PO DIRECTED 6 Days #21 packet Transmission Status: Received by [facility] Azithromycin [Z-Hao 250mg Tab*] 250 mg PO UD DOSE PK #6 tab Transmission Status: Received by [facility] Referrals: Britton High MD [Primary Care Provider] - Forms: Work/School Release Time of Disposition: 10:11 Medical Decision Making - Medical Records Medical records reviewed: No: I reviewed the patient's medical records. - Sergio Inquiry Pt receiving controlled substance: No Vital Signs: 03/30/22 09:35 03/30/22 10:29 Temperature 98.9 F 98.9 F Temperature Source Oral Pulse Rate 128 H Pulse Rate [Left] 128 H Respiratory Rate 16 16 Blood Pressure 151/91 H Blood Pressure [Right Arm] 151/91 H Blood Pressure Mean [Right Arm] 111 02 Sat by Pulse Oximetry 96 - Lab Data Lab results reviewed: Yes: I reviewed the patient's lab results. Lab Results 03/30/22 09:32: Group A Strep Rapid Negative Orders (Tests/Meds): ORDERS Category Date Time Status Strep Screen Confirmation Stat Micro 03/30/22 09:32 Received [facility] [place] HPI - General Stated complaint: fever,sore throat Time Seen by Provider: 03/30/22 09:23 - History of Present Illness Provider Complaint: He states that since yesterday he has had a sore throat, sinus congestion, fever up to 101, chills and body aches. He has a dry cough also. - Related Data Previous Rx's Medication Instructions Recorded Azithromycin [Z-Hao 250mg Tab*] 250 mg PO UD DOSE PK #6 tab 09/24/21 Promethazine/Dextromethorphan 5 ml PO Q6HP PRN #240 ml 09/24/21 [Promethazine-Dm Syrup] guaiFENesin [Mucinex 600mg tablet] 1 - 2 tab PO BIDP PRN #30 tab 09/24/21 methylPREDNISolone [Medrol] 4 mg PO DIRECTED 6 Days #21 09/24/21 packet Amoxicillin/Potassium Clav 1 tab PO Q12H 7 Days #14 tab 09/27/21 [Augmentin 875-125 Tablet] Azithromycin [Z-Hao 250mg Tab*] 250 mg PO UD DOSE PK #6 tab 03/30/22 Benzonatate [Benzonatate 100mg 100 mg PO TIDP PRN #30 cap 03/30/22 cap] methylPREDNISolone [Medrol] 4 mg PO DIRECTED 6 Days #21 03/30/22 packet Allergies Allergy/AdvReac Type Severity Reaction Status Date / Time Sulfa (Sulfonamide Allergy Intermediate I-RASH Verified 03/30/22 09:42 Antibiotics) [SULFA (SULFONAMIDE ANTIBIOTICS)] [facility] History - Hepatitis A Screen Attestation statement:: This patient has been screened for Hepatitis A risk factors. I have reviewed the patient's past medical history: Yes Medical History: Denies:: Cancer, Diabetes Mellitus Type 1, Diabetes Mellitus Type 2, MRSA Amputation: No Fractures: No - Social History Smoking Status: Never smoker Alcohol Intake: never Alcohol Intake Frequency:: holidays/special occasions only Occupational Status: other Housing: house ROS Obtained: Yes All systems reviewed & no additional complaints - Constitutional Constitutional: Reports as per HPI - Eyes Eyes: Denies eye discharge - ENT Ears, Nose, Mouth, and Thro
[2022-03-30 09:35] VITALS: BP 151/91; PULSE 128; RESP 16; TEMP 37.2; O2SAT 96; BMI 30.9
[2022-03-30 09:57] LABS: Strep Scrn Group A (Rapid) Negative (Negative)
[2022-03-30 10:29] VITALS: BP 151/91; PULSE 128; RESP 16; TEMP 37.2
== END 2022-03-30 10:30 | disposition home or self-care (01) ==
PROVIDERS: Emergency Provider Nurse Practitioner Family; PCP Internal Medicine Adolescent Medicine
DX: U07.1 COVID-19 (principal); J02.8 Acute pharyngitis due to other specified organisms
CPT/HCPCS: 87430; 99212; C9803; G0463; U0003; U0005

== ENCOUNTER 2022-09-20 08:00 | Emergency (ER) | payer OTHER, SELFPAY ==
[2022-09-20 08:25] VITALS: BP 138/68; PULSE 68; RESP 16; TEMP 36.6; O2SAT 98; BMI 28.7
[2022-09-20 08:30] LABS: UTC Influenza A Antigen Negative (Negative); UTC Strep Screen (Rapid) Negative (Negative)
[2022-09-20 08:31] LABS: UTC Influenza B Antigen Negative (Negative)
--- NOTE | 2022-09-20 08:37 | EXP.UTC ---
Discharge Plan Disposition Patient Disposition: Home, Self-Care Condition: Good Prescriptions Prescriptions: New azithromycin [Zithromax] 250 mg tablet 250 mg PO UD DOSE PK Qty: 6 0RF Rx Instructions: Take two (2) tablets today, then one (1) tablet days #2 thru #5 benzonatate [benzonatate] 100 mg capsule 100 mg PO TIDP PRN (Reason: Cough) Qty: 30 0RF No Action azithromycin 250 MG tablet 250 mg PO UD DOSE PK Qty: 6 0RF Rx Instructions: Take two (2) tablets today, then one (1) tablet days #2 thru #5 benzonatate 100 MG capsule 100 mg PO TIDP PRN (Reason: Cough) Qty: 30 0RF methylprednisolone 4 MG tablets,dose pack 4 mg PO DIRECTED 6 Days Qty: 21 0RF promethazine-DM 120 ML syrup 5 ml PO Q6HP PRN (Reason: Cough) Qty: 240 0RF azithromycin 250 MG tablet 250 mg PO UD DOSE PK Qty: 6 0RF Rx Instructions: Take two (2) tablets today, then one (1) tablet days #2 thru #5 methylprednisolone 4 MG tablets,dose pack 4 mg PO DIRECTED 6 Days Qty: 21 0RF guaifenesin 600 MG tablet extended release 12hr 1 - 2 tab PO BIDP PRN (Reason: Congestion) Qty: 30 0RF amoxicillin-pot clavulanate 1 EACH tablet 1 tab PO Q12H 7 Days Qty: 14 0RF Referrals Follow up/Referrals: Britton High MD [Primary Care Provider] - See instructions Activity Restrictions/Add. Instructions Additional Instructions/Restrictions: Drink plenty of fluids. Take tylenol or ibuprofen for pain or fever. Take the medications as directed. Follow up with your regular doctor. GO TO THE ER FOR ANY WORSENING SYMPTOMS Clinical Impressions Clinical Impression: Viral syndrome, Pharyngitis Stand Alone Forms Stand Alone Forms: Work/School Release Instructions Patient Instructions: DI for Viral Syndrome Discharge ED Provider: Hal Ledezma [facility] General Stated complaint: sore throat, ear pain, congestion Mode of Arrival: Ambulatory Source of Information: Patient Limitations: No Limitations Time Seen by Provider: 09/20/22 08:37 Description of Symptoms (Recalled from Triage Doc. by RN): pt comes in with c/o sore throat, bilateral ear pain, congestion since yesterday HEENT Symptoms (Recalled from RN notes): Yes Resp Symptoms (Recalled from RN notes): Yes Skin Symptoms (Recalled from RN notes): No MS Symptoms (Recalled from RN notes): No Functional Status (Recalled from RN notes): n/a History of Present Illness Provider Complaint: He states that he has had chest congestion, sinus congestion, malaise, low grade fever since yesterday evening. Related Data Previous Rx's Medication Instructions Recorded azithromycin 250 mg tablet 250 mg PO UD DOSE PK #6 tabs 09/24/21 guaifenesin 600 mg tablet, 1 - 2 tab PO BIDP PRN Congestion 09/24/21 extended release 12 hr #30 tabs methylprednisolone 4 mg tablets in 4 mg PO DIRECTED 6 days #21 09/24/21 a dose pack packets promethazine-DM 6.25 mg-15 mg/5 mL 5 ml PO Q6HP PRN Cough #240 mL 09/24/21 oral syrup amoxicillin 875 mg-potassium 1 tab PO Q12H 7 days #14 tabs 09/27/21 clavulanate 125 mg tablet azithromycin 250 mg tablet 250 mg PO UD DOSE PK #6 tabs 03/30/22 benzonatate 100 mg capsule 100 mg PO TIDP PRN Cough #30 caps 03/30/22 methylprednisolone 4 mg tablets in 4 mg PO DIRECTED 6 days #21 03/30/22 a dose pack packets azithromycin 250 mg tablet 250 mg PO UD DOSE PK #6 tabs 09/20/22 (Zithromax) benzonatate 100 mg capsule 100 mg PO TIDP PRN Cough #30 caps 09/20/22 Allergies Allergy/AdvReac Type Severity Reaction Status Date / Time Sulfa (Sulfonamide Allergy Intermediate I-RASH Verified 09/20/22 08:27 Antibiotics) [SULFA (SULFONAMIDE ANTIBIOTICS)] Worker's Comp Is this a Worker's Comp case?: No [facility] Disclaimer: The information contained in this section may have been updated after the patient was seen, as this information can be updated by other users. Social History (Reviewed 09/20/22 @ 09:42
[2022-09-20 09:11] VITALS: BP 138/68; PULSE 68; RESP 16; TEMP 36.6
[2022-09-20 09:19] LABS: Adenovirus,PCR Not Detected (NotDetected); Bordetella Pertussis Not Detected (NotDetected); Chlamydophila Pneumoniae, PCR Not Detected (NotDetected); Coronavirus 19, PCR Not Detected (NotDetected); Coronavirus 229E Not Detected (NotDetected); Coronavirus NL63 Not Detected (NotDetected); Coronavirus OC43 Not Detected (NotDetected); Coronovirus HKU1,PCR Not Detected (NotDetected); Human Metapneumovirus Not Detected (NotDetected); Influenza A, PCR Not Detected (NotDetected); Influenza AH1, 2009 Not Detected (NotDetected); Influenza AH1, PCR Not Detected (NotDetected); Influenza AH3,PCR Not Detected (NotDetected); Influenza B, PCR Not Detected (NotDetected); Mycoplasma Pneumoniae, PCR Not Detected (NotDetected); Parainfluenza 1, PCR Not Detected (NotDetected); Parainfluenza 2, PCR Not Detected (NotDetected); Parainfluenza 3, PCR Not Detected (NotDetected); Parainfluenza 4, PCR Not Detected (NotDetected); Respiratory Syncytial Virus Not Detected (NotDetected); Rhinovirus/Enterovirus Not Detected (NotDetected)
== END 2022-09-20 09:16 | disposition home or self-care (01) ==
PROVIDERS: Emergency Provider Nurse Practitioner Family; PCP Internal Medicine Adolescent Medicine
DX: J02.9 Acute pharyngitis, unspecified (principal); B34.9 Viral infection, unspecified
CPT/HCPCS: 87581; 87632; 87798; 87804; 87880; 99212; C9803; G0463; U0003; U0005

== ENCOUNTER 2022-10-28 07:59 | Emergency (ER) | payer OTHER, SELFPAY ==
[2022-10-28 08:15] VITALS: BP 131/81; PULSE 74; RESP 18; TEMP 37; O2SAT 98; BMI 27.8
--- NOTE | 2022-10-28 08:21 | EXP.UTC ---
Discharge Plan Disposition Patient Disposition: Home, Self-Care Condition: Good Prescriptions Prescriptions: New azithromycin [Zithromax Z-Hao] 250 mg tablet See Rx Instructions .ROUTE .COMPLEX 5 Days Qty: 6 0RF Rx Instructions: For 250 mg dose pack: take 500 mg today (day 1), then 250 mg for 4 days (days 2-5) methylprednisolone [Medrol (Hao)] 4 mg tablets,dose pack See Rx Instructions .Route .COMPLEX 6 Days Qty: 21 0RF Rx Instructions: taper pack; Referrals Follow up/Referrals: Britton High MD [Primary Care Provider] - See instructions Activity Restrictions/Add. Instructions Additional Instructions/Restrictions: *Monitor Temp, Over the counter Motrin or Tylenol as directed/as needed Tylenol every 4 hours and Motrin every 6 hours (as long as your family doctor has told you that you can take it) for fever or pain. and straight to ER if unable to lower temp less than 101.0 after medication given *Warm salt water gargles may help to soothe the throat *Throat Lozenges? *Warm fluids like tea with honey may help to soothe the throat? *Sleep elevated *Humidifier/Vaporizer Your throat swab was sent for culture. Those results are typically sent to your primary care. Be sure to follow up in 2-3 days with your family doctor/primary care physician if no improvement so they can review those result and treat if necessary. If you don?t have a primary care doctor, I recommend you get one but in the mean time, you will have to return to a walk in clinic Follow up IMMEDIATELY for new or worsening symptoms or no Noticeable improvement over the next 48-72 hours. 911 for difficulty breathing or swallowing Clinical Impressions Clinical Impression: Sinusitis Stand Alone Forms Stand Alone Forms: Work/School Release Instructions Patient Instructions: DI for Sinusitis, Sinusitis Discharge ED Provider: Shelby Sims [facility] [place] HPI General Stated complaint: sore throat, sinus congestion Time Seen by Provider: 10/28/22 08:21 History of Present Illness Provider Complaint: Patient states that for the last several days he has been having sinus congestion and pressure along with sore throat and he has been using cough drops to help soothe his throat but not working very well States that today his sinuses was worse and his throat looked red and irritated so he came in Related Data Previous Rx's Medication Instructions Recorded azithromycin 250 mg tablet See Rx Instructions PO .COMPLEX 5 10/28/22 (Zithromax Z-Hao) days #6 tabs methylprednisolone 4 mg tablets in See Rx Instructions .Route 10/28/22 a dose pack (Medrol (Hao)) .COMPLEX 6 days #21 tabs Allergies Allergy/AdvReac Type Severity Reaction Status Date / Time Sulfa (Sulfonamide Allergy Intermediate I-RASH Verified 09/20/22 08:27 Antibiotics) [SULFA (SULFONAMIDE ANTIBIOTICS)] [facility] Disclaimer: The information contained in this section may have been updated after the patient was seen, as this information can be updated by other users. Surgical History (Updated 10/28/22 @ 08:33 by Jeanie Isabel RN) History of sinus surgery Social History (Updated 10/28/22 @ 08:33 by Jeanie Isabel RN) Smoking Status: Never smoker second hand exposure: No alcohol intake: never current occupational status: other Travel in the last 8 weeks: None housing: house ROS Obtained: Yes All systems reviewed & no additional complaints except as documented and Yes Systems reviewed as appropriate & no additional complaints except as documented Constitutional Constitutional: Reports system reviewed and no additional complaints, except as documented, Reports as per HPI and Reports headache(s) ENT Ears, Nose, Mouth, and Throat: Reports system reviewed and no additional complaints, except as documented, Reports as per HPI, Reports headache(s), Reports nasal congestion, Reports sinus pressure and Reports sore th
[2022-10-28 08:42] LABS: UTC Strep Screen (Rapid) Negative (Negative)
[2022-10-28 08:50] VITALS: BP 131/81; PULSE 74; RESP 18; TEMP 37; O2SAT 98
== END 2022-10-28 08:52 | disposition home or self-care (01) ==
PROVIDERS: Emergency Provider Nurse Practitioner; PCP Internal Medicine Adolescent Medicine
DX: J32.9 Chronic sinusitis, unspecified (principal)
CPT/HCPCS: 87880; 99212; 99213; G0463

== ENCOUNTER 2023-01-28 08:00 | Emergency (ER) | payer OTHER, SELFPAY ==
[2023-01-28 08:04] VITALS: BP 109/71; PULSE 75; RESP 16; TEMP 36.9; O2SAT 98; BMI 27.4
--- NOTE | 2023-01-28 08:10 | EXP.UTC ---
Discharge Plan Disposition Patient Disposition: Home, Self-Care Condition: Good Prescriptions Prescriptions: New amoxicillin 875 mg tablet 875 mg PO BID 10 Days Qty: 20 0RF methylprednisolone [Medrol (Hao)] 4 mg tablets,dose pack 4 mg PO DIRECTED 6 Days Qty: 6 0RF Rx Instructions: 4 mg orally ;Medrol dose taper hao No Action fluticasone propionate [Flonase Allergy Relief] 50 mcg/actuation spray,suspension 1 spray intranasal DAILY Qty: 10 1RF Rx Instructions: administer into each nostril Referrals Follow up/Referrals: Britton High MD [Primary Care Provider] - See instructions Activity Restrictions/Add. Instructions Additional Instructions/Restrictions: If symptoms persist for another week may start antibiotic. Clinical Impressions Clinical Impression: Acute frontal sinusitis, unspecified Instructions Patient Instructions: DI for Sinusitis, Sinus Headache Discharge ED Provider: Elisha Sanchez [facility] [place] HPI General Stated complaint: Head/Sinus pressure, headache Mode of Arrival: Ambulatory Source of Information: Patient Limitations: No Limitations Time Seen by Provider: 01/28/23 08:09 Description of Symptoms (Recalled from Triage Doc. by RN): pt c/o sinus pressure, green mucous, congestion and a MOCK x2d HEENT Symptoms (Recalled from RN notes): Yes Resp Symptoms (Recalled from RN notes): No Skin Symptoms (Recalled from RN notes): No MS Symptoms (Recalled from RN notes): No Functional Status (Recalled from RN notes): wnl History of Present Illness Provider Complaint: Pt states that he is going on day 3 of having sinus issues. He reports that he had sinus surgery a few years back and often has issues with his sinus'. He states that he has been taking Claritan D but his drainage turned green and his head hurts across his forehead. Pt states that he had a lot of drainage down the back of his throat making it sore and has had ear discomfort with popping noises. He reports doing a sinus rinse as well. Related Data Previous Rx's Medication Instructions Recorded fluticasone propionate 50 1 spray intranasal DAILY #10 mL 12/28/22 mcg/actuation nasal spray,suspension (Flonase Allergy Relief) amoxicillin 875 mg tablet 875 mg PO BID 10 days #20 tabs 01/28/23 methylprednisolone 4 mg tablets in 4 mg PO DIRECTED 6 days #6 tabs 01/28/23 a dose pack (Medrol (Hao)) Allergies Allergy/AdvReac Type Severity Reaction Status Date / Time Sulfa (Sulfonamide Allergy Intermediate I-RASH Verified 01/28/23 08:10 Antibiotics) [SULFA (SULFONAMIDE ANTIBIOTICS)] Worker's Comp Is this a Worker's Comp case?: No [facility] Disclaimer: The information contained in this section may have been updated after the patient was seen, as this information can be updated by other users. Medical History (Updated 01/28/23 @ 08:28 by Elisha Sanchez APRN) Abdominal pain Bilateral otitis media Bronchitis Cough Nausea and vomiting Otitis media Pain, eye, left Pharyngitis Sinusitis Strep throat URI (upper respiratory infection) Surgical History (Updated 10/28/22 @ 08:33 by Jeanie Isabel RN) History of sinus surgery Social History Smoking Status: Never smoker second hand exposure: No alcohol intake: never current occupational status: other Travel in the last 8 weeks: None housing: house ROS Obtained: Yes All systems reviewed & no additional complaints except as documented Constitutional Constitutional: Reports system reviewed and no additional complaints, except as documented, Reports headache(s) and Reports malaise Eyes Eyes: Reports system reviewed and no additional complaints, except as documented ENT Ears, Nose, Mouth, and Throat: Reports otalgia, Reports headache(s), Reports nasal congestion, Reports nasal discharge, Reports sinus pain, Reports sinus pressure and Reports sore throat Cardiovascu
[2023-01-28 08:15] VITALS: BP 109/71; PULSE 75; RESP 16; TEMP 36.9
== END 2023-01-28 08:31 | disposition home or self-care (01) ==
PROVIDERS: Emergency Provider Nurse Practitioner Family; PCP Internal Medicine Adolescent Medicine
DX: J01.10 Acute frontal sinusitis, unspecified (principal); R51.9 Headache, unspecified
CPT/HCPCS: 99212; 99214; G0463

== ENCOUNTER 2023-02-12 19:34 | Emergency (ER) | payer OTHER, SELFPAY ==
[2023-02-12 19:57] VITALS: BP 144/83; PULSE 74; RESP 16; TEMP 36.6; O2SAT 99; BMI 25.8
[2023-02-12 20:30] VITALS: BP 136/88; PULSE 75; RESP 20; O2SAT 99
--- NOTE | 2023-02-12 21:42 | HMH.EDGENADL ---
Discharge Plan Disposition Patient Disposition: Home, Self-Care Prescriptions Prescriptions: New minocycline 100 mg Capsule 100 mg PO BID Qty: 20 0RF cefdinir [cefdinir] 300 mg capsule 300 mg PO BID Qty: 20 0RF ketorolac 10 mg tablet 10 mg PO Q8H 3 Days Qty: 9 0RF Referrals Follow up/Referrals: Britton High MD [Primary Care Provider] - See instructions Clinical Impressions Clinical Impression: Paronychia Instructions Patient Instructions: DI for Paronychia Discharge ED Provider: Jason (ED)[facility] HPI General Chief complaint: PAIN Stated complaint: middle finger left hand pain, unknown origin Time Seen by Provider: 02/12/23 21:30 Mode of Arrival: Ambulatory Source of Information: Patient, Spouse and Medical Record Limitations: No Limitations Description of Symptoms (Recalled from ER Triage Doc. by RN): pt presents with L middle finger pain and edema. pt states he had a small cut beside his nail a week ago. no other injury. pt requires a tetnus vaccine. History of Present Illness HPI narrative: infected lt middle finger over the last few day Onset (ago): day(s) Location: upper extremity Severity: moderate Associated symptoms: denies other symptoms Related Data Previous Rx's Medication Instructions Recorded cefdinir 300 mg capsule 300 mg PO BID #20 caps 02/12/23 ketorolac 10 mg tablet 10 mg PO Q8H 3 days #9 tabs 02/12/23 minocycline 100 mg capsule 100 mg PO BID #20 caps 02/12/23 Allergies Allergy/AdvReac Type Severity Reaction Status Date / Time Sulfa (Sulfonamide Allergy Intermediate I-RASH Verified 02/12/23 20:01 Antibiotics) [SULFA (SULFONAMIDE ANTIBIOTICS)] [facility] Disclaimer: The information contained in this section may have been updated after the patient was seen, as this information can be updated by other users. Medical History (Updated 02/12/23 @ 21:50 by Wilder Gomez (ED)MD) Abdominal pain Bilateral otitis media Bronchitis Cough Nausea and vomiting Otitis media Pain, eye, left Pharyngitis Sinusitis Strep throat URI (upper respiratory infection) Surgical History (Updated 10/28/22 @ 08:33 by Jeanie Isabel RN) History of sinus surgery Social History Smoking Status: Never smoker second hand exposure: No alcohol intake: never current occupational status: other Travel in the last 8 weeks: None housing: house ROS Obtained: Yes All systems reviewed & no additional complaints except as documented Physical Exam General General appearance: alert Head Head exam: normocephalic Eye Eye exam: Present PERRL and EOMI ENT ENT exam: Present mucous membranes moist Neck Neck exam: Present trachea midline Respiratory Respiratory exam: Absent respiratory distress Cardiovascular Cardiovascular exam: Present regular rate Extremities Exam Extremities exam: Present other (early paronychia lt middle finger- no abscess noted ) Neurological Exam Neurological exam: Present alert, oriented X3 and CN II-XII intact Skin Skin exam: Absent rash Medical Decision Making Medical Records Medical records reviewed: Yes I reviewed the patient's medical records. Sergio Inquiry Pt receiving controlled substance: No Vital Signs: 02/12/23 19:57 02/12/23 20:30 Temperature 97.9 F Temperature Source Oral Pulse Rate 75 Pulse Rate [Left] 74 Respiratory Rate 16 20 Blood Pressure 136/88 Blood Pressure [Right Arm] 144/83 H Blood Pressure Mean 95 Blood Pressure Mean [Right Arm] 103 Blood Pressure Source [Right Arm] Automatic Cuff Blood Pressure Position [Right Arm] Sitting 02 Sat by Pulse Oximetry 99 99 Oxygen Delivery Method Room Air Lab Data Lab results reviewed: Yes I reviewed the patient's lab results. Medical Decision Narrative: has lt middle finger paronychia and will use warm soaks and abx Critical Care Time Critical Care Time
[2023-02-12 21:53] VITALS: BP 125/83; PULSE 72; RESP 18; TEMP 36.9
== END 2023-02-12 22:40 | disposition home or self-care (01) ==
PROVIDERS: Emergency Provider Emergency Medicine; PCP Internal Medicine Adolescent Medicine
DX: L03.012 Cellulitis of left finger (principal)
CPT/HCPCS: 96372; 99283; 99284; J0696

== ENCOUNTER 2025-02-20 08:00 | Outpatient (RCR) | payer OTHER, SELFPAY ==
--- NOTE | 2025-01-30 11:59 | HMH.OTOPEV ---
OT Inpatient Evaluation Rehab OT Outpatient Eval Start: 01/30/25 11:47 Freq: Status: Active Protocol: Document 01/30/25 11:47 [facility]ITAL[facility] (Rec: 01/30/25 11:59 [facility] [id number]) E-signed By Bernard Easley, OT Outpatient Therapy Subjective History Subjective History Pt is a 34 year old male who reports to therapy for initial evaluation to bilateral forearms. Pt explains he has been experiencing extreme cramps/spasms in the anterior and posterior aspects of bilateral forearms for ~5 years now. Recently they have become much more frequent, usually daily. He also has been experiencing difficulty with grasping and pinching due to pain in forearm. 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 His duties consist of constant gripping, twisting, and pulling of bilateral UE's. He is right hand dominant and feels his right forearm cramps more often than the left does. He also reports concerns about his right hand learning and development coordinator weakening, especially with fine motor tasks like tightening bolts. Pt's AROM is within normal limits at both elbows and wrists. However, he is slightly weak at bilateral wrists. Pt's right learning and development coordinator strength is declined as well. Therapist will continue to tx patient 2x's a week in order to address all deficits. STG R hand learning and development coordinator strength: 130 lbs LTG R hand learning and development coordinator strength: 135 lbs New diagnosis of cancer in past 12 No months? Chief Complaint Pain,Spasms,Stiff,Weakness, Decreased Icer Machine Strength Symptom Type Ache,Throb,Sharp Symptoms Relieved By Rest/Positioning Symptoms Aggravated By Physical Activity,Twisting, Lifting Prior Functional Limitations None Current Functional Limitations Reaching,Lifting,Housework, Sleeping,Recreation Activity Symptom Description Intermittent,Activity Dependent Level of pain today (0-10) 0 Pain scale - at its best (0-10) 0 Pain scale - at its worst (0-10) 9 Wrist/Hand Eval Wrist Manual Muscle Testing Right Wrist Extension Strength Grade 4- Good- Wrist Flexion Strength Grade 4- Good- Wrist Radial Deviation Strength Grade 4- Good- Wrist Ulnar Deviation Strength Grade 4- Good- Forearm Supination Strength Grade 4- Good- Forearm Pronation Strength Grade 4- Good- Left Wrist Extension Strength Grade 4- Good- Wrist Flexion Strength Grade 4- Good- Wrist Radial Deviation Strength Grade 4- Good- Wrist Ulnar Deviation Strength Grade 4- Good- Forearm Supination Strength Grade 4- Good- Forearm Pronation Strength Grade 4- Good- Icer Machine/Pinch Strength Right Icer Machine Strength Measurement (lbs) 120 Left Icer Machine Strength Measurement (lbs) 130 QuickDASH Activities Please rate your ability to do the following activities in the last week by selecting the number below the appropriate response. 1. Open a tight or new jar. Mild difficulty 2. Do heavy parking regulation enforcement officer (e.g., wash Severe difficulty castro, floors). 3. Carry a shopping bag or briefcase. Severe difficulty 4. Wash your back. Mild difficulty 5. Use a knife to cut food. Severe difficulty 6. Recreational activities in which you Severe difficulty take some force or impact through your arm, shoulder, or hand (e.g., golf, hammering, tennis, etc.). 7. During the past week, to what extent Extremely has your arm, shoulder or hand problem interfered with your normal social activities with family, friends, neighbors or groups? 8. During the past week, were you Very limited limited in your work or other regular daily activites as a result of your arm, shoulder or hand problem? 9. Arm, shoulder or hand pain. Severe 10. Tingling (pins and needles) in your Mild arm, shoulder or hand. 11. During the past week, how much Mild difficulty difficulty have you had sleeping because of the pain in your arm, shoulder or hand? Quick DASH 37 OT Outpatient Assessment Impairments Problems/Impairments Impaired Strength,Impaired Endurance,Impaired Lifting, Impaired Household Care, Impaired Recreational Activities,Impaired Work Activities,Subjective C/O Pain Prognosis Rehab Potential Good Clinical Impression Consistent with Diagnosis Yes Short Term Goals Number of Weeks 3 Increase Strength Yes: 4/5 throughout bilateral wrists. Increase Endurance Yes: Pt will tolerate ~10 minutes of B/L wrist exercises prior to rest. Decrease Subjective C/O Pain Yes: 6/10 at worst Patient to be Ind w/ HEP Yes: AAROM stretches in bilateral wrists in flexion/ extension Improve Quick Dash Score Yes: Activities: 30 or below Assisted Goals Number of Weeks 6 Increase Strength Yes: 5/5 throughout B/L wrists Increase Endurance Yes: Pt will tolerate B/L wrist exercises for ~30 minutes prior to rest. Decrease Subjective C/O Pain Yes: 3/10 at worst Patient to be Ind w/ Advanced HEP Yes: Advanced strengthening Improve Quick Dash Score Yes: Activities: 25 or below Outpatient Therapy Plan of Care Treatment Plan May Include Therapeutic Exercise Including Home Yes Exercise Program Manual Therapy Techniques Yes Neuromuscular Re-education Yes Therapeutic Activities to Return to Yes Previous Functional/Work Level ADL/Self Care Education Yes Thermal Modalities Yes Electrical Stimulation Yes Ultrasound/Phonophoresis Yes Iontophoresis Yes Massage Yes Eval/Re-Eval Yes Frequency Times per week 2 Duration Number of Weeks 6 Addendums This patient is a candidate for social No or vocational rehab? Patient/Guardian verbally acknowledges Yes understanding of treatment program and consents to further treatment? Patient/Guardian verbally acknowledges Yes understanding of diagnosis, prognosis and goals for treatment? Eval Complexity OT Charge 27490 - Moderate Complexity Shoulder/Elbow Eval Shoulder Objective Measurements Elbow Objective Measurements PHYSICIAN CERTIFICATION: I certify the specified therapy services for Terell Platt are required, authorized, and reviewed every 30 days.
== END 2025-02-20 23:59 | disposition home or self-care (01) ==
LOC: OT 08:00
PROVIDERS: Visit Provider Nurse Practitioner Family
DX: S56.911A Strain of unspecified muscles, fascia and tendons at forearm level, right arm, initial encounter (principal); S56.912A Strain of unspecified muscles, fascia and tendons at forearm level, left arm, initial encounter
CPT/HCPCS: 97014; 97110; 97140; 97166; 97530; G0283

== ENCOUNTER 2025-03-06 08:00 | Outpatient (RCR) | payer OTHER, SELFPAY ==
--- NOTE | 2025-02-26 11:29 | HMH.RHREAS ---
Rehab Reassessment Rehab OP Re-assessment Start: 02/25/25 08:10 Freq: Status: Active Protocol: Document 02/25/25 15:54 HEMALATHA (Rec: 02/25/25 16:55 HEMALATHA [id number]) E-signed By ALEJANDRO SniderSH Activities Please rate your ability to do the following activities in the last week by selecting the number below the appropriate response. 1. Open a tight or Mild difficulty new jar. 2. Do heavy Severe difficulty acls specialist (e. g., wash castro, floors). 3. Carry a shopping Severe difficulty bag or briefcase. 4. Wash your back. Mild difficulty 5. Use a knife to Severe difficulty cut food. 6. Recreational Severe difficulty activities in which you take some force or impact through your arm, shoulder, or hand (e.g., golf, hammering, tennis, etc.). 7. During the past Extremely week, to what extent has your arm, shoulder or hand problem interfered with your normal social activities with family, friends , neighbors or groups? 8. During the past Very limited week, were you limited in your work or other regular daily activites as a result of your arm, shoulder or hand problem? 9. Arm, shoulder or Severe hand pain. 10. Tingling (pins Mild and needles) in your arm, shoulder or hand. 11. During the past Mild difficulty week, how much difficulty have you had sleeping because of the pain in your arm, shoulder or hand? Quick DASH 37 Rehab Re-assessment Subjective Subjective Pt states, I don't think anything has really changed at all. I know what I do all day at work and my hours aren't helping but the work has to be done. Pt reports no benefits that carry over after leaving therapy. He states he is starting to have more pain in web space of both hands and endurance when using hand tools is poor , 5-7 minutes then requires rest of hands. Objective Objective Notes Reassessment completed on this date. Skilled OT treatment then provided (see SOAP note). Pt plans to call MD office to schedule f/u due to limited progress with therapy. Assessment Progress Assessment Slower Than Expected Assessment Notes Pt is participating well with tx and attends consistently. 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 Strength B UE 4/5, meeting STG. No significant progress re: UE endurance during functional activities. Continues to report no pain at rest but mod to severe pain during sustained wrist/hand activities. Pt demonstrates good strength with one MMT/machinist apprentice wood/pinch test , with scores decreasing and c/o pain increasing with each repetition. Pt is ind with HEP. Pt continues to report being able to tolerate work tasks including small tool use for 5-7 min before having to stop and rest, with severe pain in B web space and wrists. Patient goals met 1, 4 Goals Not Met 2, 3, 5 Revised Goals 1. 5/5 strength t/o B wrists 2. Pt tolerate 10 min B wrist exercises prior to resting. 3. Pain no greater than 6/10 at worst 4. Ind with advanced HEP. 5. Quickdash score of 30 or below. Plan Plan cont POC with goals above; communicate pt limited progress to MD Frequency of Therapy 2 x wk Duration of therapy 6 Time and Billing Re-Eval Time 15 Re-Eval Billing 0 Units Charge for OT No reassessment? PHYSICIAN CERTIFICATION: I certify the specified therapy services for Terell Platt are required, authorized, and reviewed every 30 days.
--- NOTE | 2025-02-26 11:30 | HMH.RHREAS ---
Rehab Reassessment Rehab OP Re-assessment Start: 02/25/25 08:10 Freq: Status: Active Protocol: Document 02/25/25 15:54 HEMALATHA (Rec: 02/25/25 16:55 HEMALATHA [id number]) E-signed By ALEJANDRO SniderSH Activities Please rate your ability to do the following activities in the last week by selecting the number below the appropriate response. 1. Open a tight or Mild difficulty new jar. 2. Do heavy Severe difficulty machine designer (e. g., wash castro, floors). 3. Carry a shopping Severe difficulty bag or briefcase. 4. Wash your back. Mild difficulty 5. Use a knife to Severe difficulty cut food. 6. Recreational Severe difficulty activities in which you take some force or impact through your arm, shoulder, or hand (e.g., golf, hammering, tennis, etc.). 7. During the past Extremely week, to what extent has your arm, shoulder or hand problem interfered with your normal social activities with family, friends , neighbors or groups? 8. During the past Very limited week, were you limited in your work or other regular daily activites as a result of your arm, shoulder or hand problem? 9. Arm, shoulder or Severe hand pain. 10. Tingling (pins Mild and needles) in your arm, shoulder or hand. 11. During the past Mild difficulty week, how much difficulty have you had sleeping because of the pain in your arm, shoulder or hand? Quick DASH 37 Rehab Re-assessment Subjective Subjective Pt states, I don't think anything has really changed at all. I know what I do all day at work and my hours aren't helping but the work has to be done. Pt reports no benefits that carry over after leaving therapy. He states he is starting to have more pain in web space of both hands and endurance when using hand tools is poor , 5-7 minutes then requires rest of hands. Objective Objective Notes Reassessment completed on this date. Skilled OT treatment then provided (see SOAP note). Pt plans to call MD office to schedule f/u due to limited progress with therapy. Assessment Progress Assessment Slower Than Expected Assessment Notes Pt is participating well with tx and attends consistently. 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 Strength B UE 4/5, meeting STG. No significant progress re: UE endurance during functional activities. Continues to report no pain at rest but mod to severe pain during sustained wrist/hand activities. Pt demonstrates good strength with one MMT/laster hand/pinch test , with scores decreasing and c/o pain increasing with each repetition. Pt is ind with HEP. Pt continues to report being able to tolerate work tasks including small tool use for 5-7 min before having to stop and rest, with severe pain in B web space and wrists. Patient goals met 1, 4 Goals Not Met 2, 3, 5 Revised Goals 1. 5/5 strength t/o B wrists 2. Pt tolerate 10 min B wrist exercises prior to resting. 3. Pain no greater than 6/10 at worst 4. Ind with advanced HEP. 5. Quickdash score of 30 or below. Plan Plan cont POC with goals above; communicate pt limited progress to MD Frequency of Therapy 2 x wk Duration of therapy 6 Time and Billing Re-Eval Time 15 Re-Eval Billing 0 Units Charge for OT No reassessment? PHYSICIAN CERTIFICATION: I certify the specified therapy services for Terell Platt are required, authorized, and reviewed every 30 days.
== END 2025-03-06 23:59 | disposition home or self-care (01) ==
LOC: OT 08:00
PROVIDERS: Visit Provider Nurse Practitioner Family
DX: S56.911A Strain of unspecified muscles, fascia and tendons at forearm level, right arm, initial encounter (principal); S56.912A Strain of unspecified muscles, fascia and tendons at forearm level, left arm, initial encounter
CPT/HCPCS: 97014; 97140; 97530; G0283

== ENCOUNTER 2025-03-17 10:38 | Outpatient (CLI) | payer OTHER, SELFPAY ==
--- NOTE | 2025-03-17 10:42 | XR_ITS ---
FINAL REPORT CLINICAL HISTORY: right forearm pain COMPARISON: None FINDINGS: 2 views of the right forearm were obtained. There is no acute fracture or dislocation. The joints are intact. There are no soft tissue abnormalities. IMPRESSION: No acute process. Reviewed, Interpreted and Dictated by Emanuel Jones MD Transcribed by Shannon Black Authenticated and [facility]
--- NOTE | 2025-03-17 10:42 | XR_ITS ---
FINAL REPORT CLINICAL HISTORY: left forearm pain COMPARISON: None FINDINGS: 2 views of the left forearm were obtained. There is no acute fracture or dislocation. The joints are intact. There are no soft tissue abnormalities. IMPRESSION: No acute process. Reviewed, Interpreted and Dictated by Emanuel Jones MD Transcribed by Shannon Black Authenticated and [facility]
== END 2025-03-17 23:59 | disposition home or self-care (01) ==
LOC: RAD 10:39
PROVIDERS: PCP Internal Medicine Adolescent Medicine; Visit Provider Physician Assistant Surgical
DX: M79.632 Pain in left forearm (principal); M79.631 Pain in right forearm
CPT/HCPCS: 73090